=== PATIENT | female | born 1960 | race Caucasian/White ===

== ENCOUNTER 2022-05-16 09:12 | Emergency (ER) | payer OTHER ==
[~2022-05-16] VITALS: Ht 160 cm; Wt 59.1 kg
[2022-05-16] MEDS ORDERED: DICL25TA9 PO (09:19)
[2022-05-16] MEDS ORDERED: HYDROCODONE/ACETAMINOPHEN 5-325 MG TABLET PO ONE (10:15)
[2022-05-16] MEDS ORDERED: IBUP-2070 PO (12:25)
[2022-05-16] MEDS ORDERED: HYDR-4723 PO (12:25)
[2022-05-16 12:45] VITALS: BP 125/70
== END 2022-05-16 12:47 | disposition home or self-care (01) ==
LOC: EMS 09:15
DX: S52.501A Unspecified fracture of the lower end of right radius, initial encounter for closed fracture (principal); S82.402A Unspecified fracture of shaft of left fibula, initial encounter for closed fracture; M19.072 Primary osteoarthritis, left ankle and foot; Z88.2 Allergy status to sulfonamides; W01.0XXA Fall on same level from slipping, tripping and stumbling without subsequent striking against object, initial encounter; Y93.01 Activity, walking, marching and hiking; Y92.89 Other specified places as the place of occurrence of the external cause; Y99.8 Other external cause status
CPT/HCPCS: 29515; 99284